=== PATIENT | male | born 1965 | race Caucasian/White ===

== ENCOUNTER 2016-12-12 17:55 | Emergency (ER) | payer OTHER ==
[~2016-12-12] VITALS: Ht 185.4 cm; Wt 83.9 kg
[~2016-12-12 17:55] MED LIST: AMITRIPTYLINE H25 MG PO; AZITHROMYCIN250 MG PO; DOXYCYCLINE HY100 MG PO; FLAGYL500 MG PO; HYDROCODON-ACE1 EA11 PO; HYDROCODON-ACE1 EA14 PO; MORPHINE SULFAT30 M2 PO; NORCO 7.5-3251 EACH PO; OXYCODONE-ACET1 EAC3 PO; PRILOSEC20 MG PO; VALIUM5 MG PO; XARELTO15 MG PO
[2016-12-12] MEDS ORDERED: METHOCARBAMOL750 MG PO (18:13)
== END 2016-12-12 18:30 | disposition home or self-care (01) ==
LOC: ED 17:55
DX: M79.605 Pain in left leg (principal); Z87.891 Personal history of nicotine dependence; Z88.0 Allergy status to penicillin; Z79.899 Other long term (current) drug therapy
CPT/HCPCS: 99282

== ENCOUNTER 2017-01-19 18:52 | Emergency (ER) | payer OTHER ==
[~2017-01-19] VITALS: Ht 185.4 cm; Wt 83.9 kg
[~2017-01-19 18:52] MED LIST changes: +METHOCARBAMOL750 MG PO
[2017-01-19] MEDS ORDERED: OXYCODONE HCL5 MG PO (21:57)
== END 2017-01-19 22:09 | disposition home or self-care (01) ==
LOC: ED 18:52
DX: M54.41 Lumbago with sciatica, right side (principal); Z86.718 Personal history of other venous thrombosis and embolism; Z88.0 Allergy status to penicillin; Z88.8 Allergy status to other drugs, medicaments and biological substances; Z79.899 Other long term (current) drug therapy
CPT/HCPCS: 96372; 99283; J1170; J2550

== ENCOUNTER 2017-07-05 10:19 | Emergency (ER) | payer OTHER ==
[~2017-07-05] VITALS: Ht 185.4 cm; Wt 86.2 kg
[~2017-07-05 10:19] MED LIST changes: +OXYCODONE HCL5 MG PO
[2017-07-05] MEDS ORDERED: XARELTO20 MG PO (10:40)
== END 2017-07-05 12:57 | disposition home or self-care (01) ==
LOC: ED 10:19
DX: D68.9 Coagulation defect, unspecified (principal); Z88.0 Allergy status to penicillin; Z88.8 Allergy status to other drugs, medicaments and biological substances; Z79.899 Other long term (current) drug therapy; Z86.718 Personal history of other venous thrombosis and embolism
CPT/HCPCS: 80053; 85025; 99284

== ENCOUNTER 2017-07-24 10:54 | Emergency (ER) | payer OTHER ==
[~2017-07-24] VITALS: Ht 185.4 cm; Wt 85.7 kg
[~2017-07-24 10:54] MED LIST changes: +XARELTO20 MG PO
[2017-07-24] MEDS ORDERED: MAPAP500 MG PO (11:04)
[2017-07-24] MEDS ORDERED: CYCLOBENZAPRINE10 MG PO (12:46)
== END 2017-07-24 13:08 | disposition home or self-care (01) ==
LOC: ED 10:54
DX: F41.9 Anxiety disorder, unspecified (principal); M54.6 Pain in thoracic spine; M54.5 Low back pain; Z86.718 Personal history of other venous thrombosis and embolism; Z88.0 Allergy status to penicillin; Z88.8 Allergy status to other drugs, medicaments and biological substances; Z79.899 Other long term (current) drug therapy
CPT/HCPCS: 99283

== ENCOUNTER 2019-06-23 12:52 | Emergency (ER) | payer OTHER ==
[~2019-06-23] VITALS: Ht 185.4 cm; Wt 85.7 kg
[~2019-06-23 12:52] MED LIST changes: +CYCLOBENZAPRINE10 MG PO; +MAPAP500 MG PO
--- OUTSIDE RECORDS SUMMARY | 2019-06-23 12:54 | XMS ---
PreManage Notification: LAVONNE BORJAS Security Sprayer Insecticide Events No recent Security Events currently on file CRITERIA MET - [facility] There are no care providers on record at this time. Mikel has no Care Guidelines for this patient. Care History Medical/Surgical 07/25/2017 [facility] Care Recommendation: This patient has had 5 or more Emergency Department visits in the last 12 months. Patient requires education on the scope and purpose of the ED as an acute care provider not a Primary Care Provider and should not be utilized for chronic conditions. If patient returns to ED please contact Community Health WorkerMara at [phone]. These are guidelines and the provider should exercise clinical judgment when providing care. E.D. VISIT COUNT (12 MO.) 1 [facility] TOTAL 1 NOTE: Visits indicate total known visits. ED/UCC VISIT TRACKING (12 MO.) 06/23/2019 12:52 [facility]TY [facility] [place] TYPE: Emergency COMPLAINT: - CHRONIC BACK PAIN INPATIENT VISIT TRACKING (12 MO.) No inpatient visits to display in this time frame [email or web address]
[2019-06-23] MEDS ORDERED: ROBAXIN-750750 MG NG (13:18)
[2019-06-23] MEDS ORDERED: OXYCODONE HCL5 MG PO (13:20)
== END 2019-06-23 14:48 | disposition home or self-care (01) ==
LOC: ED 12:52
DX: M54.5 Low back pain (principal); Z87.891 Personal history of nicotine dependence; Z88.0 Allergy status to penicillin; Z88.8 Allergy status to other drugs, medicaments and biological substances; Z79.899 Other long term (current) drug therapy; Z79.891 Long term (current) use of opiate analgesic
CPT/HCPCS: 72100; 99283-25

== ENCOUNTER 2020-09-02 15:08 | Emergency (ER) | payer OTHER ==
[~2020-09-02] VITALS: Ht 185.4 cm; Wt 88.5 kg
[~2020-09-02 15:08] MED LIST changes: +ROBAXIN-750750 MG NG
--- OUTSIDE RECORDS SUMMARY | 2020-09-02 15:10 | XMS ---
PreManage Notification: LAVONNE BORJAS Security Property Adjuster Events No recent Security Events currently on file CRITERIA MET - [facility] CARE PROVIDERS MILE DIAMOND Physician Cabinet Professional 06/24/2019-Current PHONE: [phone] Mikel has no Care Guidelines for this patient. Care History Medical/Surgical 07/25/2017 [facility] Care Recommendation: This patient has had 5 or more Emergency Department visits in the last 12 months. Patient requires education on the scope and purpose of the ED as an acute care provider not a Primary Care Provider and should not be utilized for chronic conditions. If patient returns to ED please contact Community Health WorkerMara at [phone]. These are guidelines and the provider should exercise clinical judgment when providing care. E.D. VISIT COUNT (12 MO.) [address] [place] [address] TOTAL 1 NOTE: Visits indicate total known visits. ED/UCC VISIT TRACKING (12 MO.) 09/02/2020 15:09 [facility] [place] TYPE: Emergency COMPLAINT: - BACK PROBLEM/ SKIN ISSUE INPATIENT VISIT TRACKING (12 MO.) No inpatient visits to display in this time frame [email or web address]
[2020-09-02] MEDS ORDERED: CLEOCIN HCL300 MG PO (18:46)
== END 2020-09-02 19:01 | disposition home or self-care (01) ==
LOC: ED 15:08
DX: L02.212 Cutaneous abscess of back [any part, except buttock and flank] (principal); D64.9 Anemia, unspecified; Z87.891 Personal history of nicotine dependence; Z88.0 Allergy status to penicillin; Z88.8 Allergy status to other drugs, medicaments and biological substances; Z79.899 Other long term (current) drug therapy
CPT/HCPCS: 74177; 80053; 81001; 85025; 99283-25; J2270; J7030; Q9967

== ENCOUNTER 2020-09-17 14:04 | Emergency (ER) | payer OTHER ==
[~2020-09-17] VITALS: Ht 185.4 cm; Wt 90.7 kg
[~2020-09-17 14:04] MED LIST changes: +CLEOCIN HCL300 MG PO
--- OUTSIDE RECORDS SUMMARY | 2020-09-17 14:08 | XMS ---
PreManage Notification: LAVONNE BORJAS Security Television Equipment Operator Events No recent Security Events currently on file CRITERIA MET - [facility] - 2 Visits in 30 Days CARE PROVIDERS MILE DIAMOND Physician Corporate Account Executive 09/04/2020-Current PHONE: [phone] Mikel has no Care Guidelines for this patient. Care History Medical/Surgical 07/25/2017 [facility] Care Recommendation: This patient has had 5 or more Emergency Department visits in the last 12 months. Patient requires education on the scope and purpose of the ED as an acute care provider not a Primary Care Provider and should not be utilized for chronic conditions. If patient returns to ED please contact Community Health WorkerMara at [phone]. These are guidelines and the provider should exercise clinical judgment when providing care. E.D. VISIT COUNT (12 MO.) 2 [facility] TOTAL 2 NOTE: Visits indicate total known visits. ED/UCC VISIT TRACKING (12 MO.) 09/17/2020 14:05 [facility] [place] TYPE: Emergency COMPLAINT: - POST OP BANDAGE NEEDS REPLACED 09/02/2020 15:09 [facility] [place] TYPE: Emergency COMPLAINT: - BACK PROBLEM/ SKIN ISSUE DIAGNOSES: - Personal history of nicotine dependence - Low back pain - Allergy status to other drugs, medicaments and biological substances - Anemia, unspecified - Cutaneous abscess of back [any part, except buttock] - Allergy status to penicillin - Other long term care social worker (current) drug therapy INPATIENT VISIT TRACKING (12 MO.) 09/08/2020 06:13 [facility] Claudia TAYLOR TYPE: Surgical Services DIAGNOSES: - Arthrodesis status - Cutaneous abscess of back [any part, except buttock] - Infection following a procedure, deep incisional surgical site, initial encounter - Unspecified infectious disease - Opioid dependence, uncomplicated - penitentiary (current) use of anticoagulants - Personal history of other venous thrombosis and embolism - Other specified soft tissue disorders [email or web address]
[2020-09-17] MEDS ORDERED: MORPHINE SULFAT15 M1 PO (14:33)
== END 2020-09-17 14:41 | disposition home or self-care (01) ==
LOC: ED 14:04
DX: Z48.817 Encounter for surgical aftercare following surgery on the skin and subcutaneous tissue (principal); D64.9 Anemia, unspecified; Z87.891 Personal history of nicotine dependence; Z88.0 Allergy status to penicillin; Z88.8 Allergy status to other drugs, medicaments and biological substances; Z88.1 Allergy status to other antibiotic agents; Z79.899 Other long term (current) drug therapy
CPT/HCPCS: 99282

== ENCOUNTER 2020-10-07 17:10 | Emergency (ER) | payer OTHER ==
[~2020-10-07] VITALS: Ht 185.4 cm; Wt 90.7 kg
[~2020-10-07 17:10] MED LIST changes: +MORPHINE SULFAT15 M1 PO
--- OUTSIDE RECORDS SUMMARY | 2020-10-07 17:14 | XMS ---
PreManage Notification: LAVONNE BORJAS Security Antisqueak Chalker Events No recent Security Events currently on file CRITERIA MET - [facility] - 2 Visits in 30 Days CARE PROVIDERS MILE DIAMOND Physician Aerodynamics Teacher 09/04/2020-Current PHONE: [phone] Mikel has no Care Guidelines for this patient. Care History Medical/Surgical 07/25/2017 [facility] Care Recommendation: This patient has had 5 or more Emergency Department visits in the last 12 months. Patient requires education on the scope and purpose of the ED as an acute care provider not a Primary Care Provider and should not be utilized for chronic conditions. If patient returns to ED please contact Community Health WorkerMara at [phone]. These are guidelines and the provider should exercise clinical judgment when providing care. E.D. VISIT COUNT (12 MO.) 3 [facility] TOTAL 3 NOTE: Visits indicate total known visits. ED/UCC VISIT TRACKING (12 MO.) 10/07/2020 17:12 [facility] [place] TYPE: Emergency COMPLAINT: - PREV ABSCESS HAS RETURNED 09/17/2020 14:05 [facility] [place] TYPE: Emergency COMPLAINT: - POST OP BANDAGE NEEDS REPLACED DIAGNOSES: - Allergy status to penicillin - Anemia, unspecified - Allergy status to other drugs, medicaments and biological substances - Encounter for surgical aftercare following surgery on the skin and subcutaneous tissue - Allergy status to other antibiotic agents - Personal history of nicotine dependence - Other terminal makeup operator (current) drug therapy 09/02/2020 15:09 [facility] [place] TYPE: Emergency COMPLAINT: - BACK PROBLEM/ SKIN ISSUE DIAGNOSES: - Personal history of nicotine dependence - Low back pain - Allergy status to other drugs, medicaments and biological substances - Anemia, unspecified - Cutaneous abscess of back [any part, except buttock] - Allergy status to penicillin - Other terminal makeup operator (current) drug therapy INPATIENT VISIT TRACKING (12 MO.) 09/08/2020 06:13 [facility] Alyce TAYLOR TYPE: Surgical Services DIAGNOSES: - Arthrodesis status - Cutaneous abscess of back [any part, except buttock] - Infection following a procedure, deep incisional surgical site, initial encounter - Unspecified infectious disease - Opioid dependence, uncomplicated - prison (current) use of anticoagulants - Personal history of other venous thrombosis and embolism - Other specified soft tissue disorders [email or web address]
[2020-10-07] MEDS ORDERED: VANCO 1.51.5 GM/250 IV (17:44)
== END 2020-10-07 21:04 | disposition home or self-care (01) ==
LOC: ED 17:10
DX: L02.212 Cutaneous abscess of back [any part, except buttock and flank] (principal); D64.9 Anemia, unspecified; Z87.891 Personal history of nicotine dependence; Z88.1 Allergy status to other antibiotic agents; Z88.0 Allergy status to penicillin; Z88.8 Allergy status to other drugs, medicaments and biological substances; Z79.899 Other long term (current) drug therapy; Z79.891 Long term (current) use of opiate analgesic
CPT/HCPCS: 74177; 80053; 85025; 96376; 99283-25; J1170; J7040; Q9967

== ENCOUNTER 2020-10-12 20:41 | Emergency (ER) | payer OTHER ==
[~2020-10-12] VITALS: Ht 185.4 cm; Wt 90.7 kg
[~2020-10-12 20:41] MED LIST changes: +VANCO 1.51.5 GM/250 IV
--- OUTSIDE RECORDS SUMMARY | 2020-10-12 20:44 | XMS ---
PreManage Notification: LAVONNE BORJAS Security Medical Language Specialist Events No recent Security Events currently on file CRITERIA MET - [facility] - [facility] - 2 Visits in 30 Days CARE PROVIDERS MILE DIAMOND Physician Entry Level Assistant Manager 09/04/2020-Current PHONE: [phone] Mikel has no Care Guidelines for this patient. Care History Medical/Surgical 10/09/2020 [facility] - PATIENT CURRENTLY ON A PAIN CONTRACT WITH RADHA NELSON PA-C. 07/25/2017 [facility] Care Recommendation: This patient has had 5 or more Emergency Department visits in the last 12 months. Patient requires education on the scope and purpose of the ED as an acute care provider not a Primary Care Provider and should not be utilized for chronic conditions. If patient returns to ED please contact Community Health WorkerMara at [phone]. These are guidelines and the provider should exercise clinical judgment when providing care. E.D. VISIT COUNT (12 MO.) 4 [facility]. TOTAL 4 NOTE: Visits indicate total known visits. ED/UCC VISIT TRACKING (12 MO.) 10/12/2020 20:42 [facility] [place] TYPE: Emergency COMPLAINT: - POST OP PROBLEM 10/07/2020 17:12 [facility] [place] TYPE: Emergency COMPLAINT: - PREV ABSCESS HAS RETURNED DIAGNOSES: - Other usp (current) drug therapy - Allergy status to penicillin - Allergy status to other drugs, medicaments and biological substances - Allergy status to other antibiotic agents - Anemia, unspecified - penitentiary (current) use of opiate analgesic - Personal history of nicotine dependence - Cutaneous abscess of back [any part, except buttock] 09/17/2020 14:05 [facility] [place] TYPE: Emergency COMPLAINT: - POST OP BANDAGE NEEDS REPLACED DIAGNOSES: - Allergy status to penicillin - Anemia, unspecified - Allergy status to other drugs, medicaments and biological substances - Encounter for surgical aftercare following surgery on the skin and subcutaneous tissue - Allergy status to other antibiotic agents - Personal history of nicotine dependence - Other salvage determiner (current) drug therapy 09/02/2020 15:09 [facility] [place] TYPE: Emergency COMPLAINT: - BACK PROBLEM/ SKIN ISSUE DIAGNOSES: - Personal history of nicotine dependence - Low back pain - Allergy status to other drugs, medicaments and biological substances - Anemia, unspecified - Cutaneous abscess of back [any part, except buttock] - Allergy status to penicillin - Other salvage determiner (current) drug therapy INPATIENT VISIT TRACKING (12 MO.) 09[facility]/2020 [facility] DIAGNOSES: - Arthrodesis status - Cutaneous abscess of back [any part, except buttock] - Infection following a procedure, deep incisional surgical site, initial encounter - Unspecified infectious disease - Opioid dependence, uncomplicated - terminal makeup operator (current) use of anticoagulants - Personal history of other venous thrombosis and embolism - Other specified soft tissue disorders [id number]
== END 2020-10-12 21:48 | disposition home or self-care (01) ==
LOC: ED 20:41
DX: L76.82 Other postprocedural complications of skin and subcutaneous tissue (principal); D64.9 Anemia, unspecified; Z87.891 Personal history of nicotine dependence; Z88.1 Allergy status to other antibiotic agents; Z88.0 Allergy status to penicillin; Z88.8 Allergy status to other drugs, medicaments and biological substances; Z79.899 Other long term (current) drug therapy; Z79.891 Long term (current) use of opiate analgesic
CPT/HCPCS: 87070; 87205; 99283

== ENCOUNTER 2020-12-12 18:07 | Emergency (ER) | payer OTHER ==
[~2020-12-12] VITALS: Ht 185.4 cm; Wt 86.2 kg
--- OUTSIDE RECORDS SUMMARY | 2020-12-12 18:10 | XMS ---
PreManage Notification: LAVONNE BORJAS Security Awning Hanger Events No recent Security Events currently on file CRITERIA MET - [facility] - 6 ED Visits in 6 Months CARE PROVIDERS MILE DIAMOND Physician Store Coordinator 09/04/2020-Current PHONE: [phone] Mikel has no Care Guidelines for this patient. Care History Medical/Surgical 10/09/2020 [facility] - PATIENT CURRENTLY ON A PAIN CONTRACT WITH RADHA NELSON PA-C. 07/25/2017 [facility] Care Recommendation: This patient has had 5 or more Emergency Department visits in the last 12 months. Patient requires education on the scope and purpose of the ED as an acute care provider not a Primary Care Provider and should not be utilized for chronic conditions. If patient returns to ED please contact Community Health WorkerMara at [phone]. These are guidelines and the provider should exercise clinical judgment when providing care. E.D. VISIT COUNT ([address] 6 [facility] TOTAL 6 NOTE: Visits indicate total known visits. ED/UCC VISIT TRACKING (12 MO.) 12/12/2020 18:08 [facility] [place] TYPE: Emergency COMPLAINT: - LOWER RT SKIN PROBLEM 10/26/2020 21:43 [facility] [place] TYPE: Emergency COMPLAINT: - POST OP PROBLEM 10/12/2020 20:42 [facility] [place] TYPE: Emergency COMPLAINT: - POST OP PROBLEM DIAGNOSES: - Personal history of nicotine dependence - Allergy status to penicillin - Other postprocedural complications of skin and subcutaneous tissue - submersible pilot (current) use of opiate analgesic - Allergy status to other drugs, medicaments and biological substances - Allergy status to other antibiotic agents - Anemia, unspecified - Other longwall headgate operator (current) drug therapy 10/07/2020 17:12 [facility] [place] TYPE: Emergency COMPLAINT: - PREV ABSCESS HAS RETURNED DIAGNOSES: - Other senior living (current) drug therapy - Allergy status to penicillin - Allergy status to other drugs, medicaments and biological substances - Allergy status to other antibiotic agents - Anemia, unspecified - nursing home (current) use of opiate analgesic - Personal history of nicotine dependence - Cutaneous abscess of back [any part, except buttock] 09/17/2020 14:05 [facility] [place] TYPE: Emergency COMPLAINT: - POST OP BANDAGE NEEDS REPLACED DIAGNOSES: - Allergy status to penicillin - Anemia, unspecified - Allergy status to other drugs, medicaments and biological substances - Encounter for change or removal of surgical wound dressing - Encounter for surgical aftercare following surgery on the skin and subcutaneous tissue - Allergy status to other antibiotic agents - Personal history of nicotine dependence - Other senior living (current) drug therapy 09/02/2020 15:09 [facility] [place] TYPE: Emergency COMPLAINT: - BACK PROBLEM/ SKIN ISSUE DIAGNOSES: - Personal history of nicotine dependence - Low back pain - Allergy status to other drugs, medicaments and biological substances - Anemia, unspecified - Cutaneous abscess of back [any part, except buttock] - Allergy status to penicillin - Other longwall headgate operator (current) drug therapy INPATIENT VISIT TRACKING (12 MO.) [facility] DIAGNOSES: - Unspecified infectious disease - Postlaminectomy syndrome, not elsewhere classified - Other specified postprocedural states - Infection following a procedure, deep incisional surgical site, initial encounter 09/08/2020 06:13 [facility] DIAGNOSES: - Arthrodesis status - Cutaneous abscess of back [any part, except buttock] - Infection following a procedure, deep incisional surgical site, initial encounter - Unspecified infectious disease - Opioid dependence, uncomplicated - nursing home (current) use of anticoagulants - Personal history of other venous thrombosis and embolism - Other specified soft tissue disorders [email or web address]
[2020-12-12] MEDS ORDERED: CEFAZOLIN2 GM/20 M1 IV (18:35)
== END 2020-12-12 19:39 | disposition home or self-care (01) ==
LOC: ED 18:07
DX: T81.41XA Infection following a procedure, superficial incisional surgical site, initial encounter (principal); L02.212 Cutaneous abscess of back [any part, except buttock and flank]; D64.9 Anemia, unspecified; Z87.891 Personal history of nicotine dependence; Z88.0 Allergy status to penicillin; Z88.8 Allergy status to other drugs, medicaments and biological substances; Z88.1 Allergy status to other antibiotic agents; Z79.899 Other long term (current) drug therapy; Z79.891 Long term (current) use of opiate analgesic
CPT/HCPCS: 99283

== ENCOUNTER 2021-08-08 12:05 | Emergency (ER) | payer OTHER ==
[~2021-08-08] VITALS: Ht 185.4 cm; Wt 86.6 kg
[~2021-08-08 12:05] MED LIST changes: +CEFAZOLIN2 GM/20 M1 IV
--- OUTSIDE RECORDS SUMMARY | 2021-08-08 12:08 | XMS ---
PreManage Notification: LAVONNE BORJAS Security Contact Lens Polisher Events No recent Security Events currently on file CRITERIA MET - [facility] CARE PROVIDERS MILE DIAMOND Physician Jailer/Training Officer 09/04/2020-Current PHONE: [phone] Mikel has no Care Guidelines for this patient. Care History Medical/Surgical 10/09/2020 [facility] - PATIENT CURRENTLY ON A PAIN CONTRACT WITH RADHA NELSON PA-C. 07/25/2017 [facility] Care Recommendation: This patient has had 5 or more Emergency Department visits in the last 12 months. Patient requires education on the scope and purpose of the ED as an acute care provider not a Primary Care Provider and should not be utilized for chronic conditions. If patient returns to ED please contact Community Health WorkerMara at [phone]. These are guidelines and the provider should exercise clinical judgment when providing care. E.D. VISIT COUNT (12 MO.) 1 [facility] 7 [facility]. TOTAL 8 NOTE: Visits indicate total known visits. ED/UCC VISIT TRACKING (12 MO.) 08/08/2021 12:06 LETTY Carey TYPE: Emergency COMPLAINT: - WOUND ON LOWER BACK 12/18/2020 12:00 [facility] TYPE: Emergency DIAGNOSES: 39616. spine cage issues and infection 46294. Osteomyelitis of vertebra, lumbar region 86602. Unspecified infectious disease 12/12/2020 18:08 [facility] [place] TYPE: Emergency COMPLAINT: - LOWER RT SKIN PROBLEM DIAGNOSES: - Infection following a procedure, superficial incisional surgical site, initial encounter - leadership program intern (current) use of opiate analgesic - Other geoint analyst (current) drug therapy - Allergy status to other drugs, medicaments and biological substances - Allergy status to other antibiotic agents - Anemia, unspecified - Cutaneous abscess of back [any part, except buttock] - Personal history of nicotine dependence - Allergy status to penicillin 10/26/2020 21:43 [facility] [place] TYPE: Emergency COMPLAINT: - POST OP PROBLEM 10/12/2020 20:42 [facility] [place] TYPE: Emergency COMPLAINT: - POST OP PROBLEM DIAGNOSES: - Personal history of nicotine dependence - Allergy status to penicillin - Other postprocedural complications of skin and subcutaneous tissue - snf (current) use of opiate analgesic - Allergy status to other drugs, medicaments and biological substances - Allergy status to other antibiotic agents - Anemia, unspecified - Other geoint analyst (current) drug therapy 10/07/2020 17:12 [facility] [place] TYPE: Emergency COMPLAINT: - PREV ABSCESS HAS RETURNED DIAGNOSES: - Other fpc (current) drug therapy - Allergy status to penicillin - Allergy status to other drugs, medicaments and biological substances - Allergy status to other antibiotic agents - Anemia, unspecified - snf (current) use of opiate analgesic - Personal [...] Personal history of nicotine dependence - Other fpc (current) drug therapy 09/02/2020 15:09 [facility] [place] TYPE: Emergency COMPLAINT: - BACK PROBLEM/ SKIN ISSUE DIAGNOSES: - Personal history of nicotine dependence - Low back pain - Allergy status to other drugs, medicaments and biological substances - Anemia, unspecified - Cutaneous abscess of back [any part, except buttock] - Allergy status to penicillin - Other fpc (current) drug therapy INPATIENT VISIT TRACKING (12 MO.) 10/18/2020 08:39 [facility] [place] TYPE: Surgical Services DIAGNOSES: - Unspecified infectious disease - Postlaminectomy syndrome, not elsewhere classified - Other specified postprocedural states - Infection following a procedure, deep incisional surgical site, initial encounter 09/08/2020 06[facility] DIAGNOSES: - Arthrodesis status - Cutaneous abscess of back [any part, except buttock] - Infection following a procedure, deep incisional surgical site, initial encounter - Unspecified infectious disease - Opioid dependence, uncomplicated - snf (current) use of anticoagulants - Personal history of other venous thrombosis and embolism - Other specified soft tissue disorders [email or web address]
[2021-08-08] MEDS ORDERED: CEPHALEXIN500 M1 PO (19:20)
== END 2021-08-08 19:50 | disposition home or self-care (01) ==
LOC: ED 12:05
DX: L02.212 Cutaneous abscess of back [any part, except buttock and flank] (principal); L08.9 Local infection of the skin and subcutaneous tissue, unspecified; Z86.718 Personal history of other venous thrombosis and embolism; D64.9 Anemia, unspecified; Z87.891 Personal history of nicotine dependence; Z88.0 Allergy status to penicillin; Z88.1 Allergy status to other antibiotic agents; Z88.8 Allergy status to other drugs, medicaments and biological substances; Z79.01 Long term (current) use of anticoagulants; Z79.899 Other long term (current) drug therapy; Z20.822 Contact with and (suspected) exposure to COVID-19
CPT/HCPCS: 10060; 36415; 74177; 80048; 83605; 85025; 86140; 87070; 99283-25; C9803; J1170; Q9967; U0003

== ENCOUNTER 2021-09-05 19:03 | Inpatient (IN) | payer MEDICARE, OTHER ==
[~2021-09-05] VITALS: Ht 185.4 cm; Wt 90.6 kg
[~2021-09-05 19:03] MED LIST changes: +CEPHALEXIN500 M1 PO; -ROBAXIN-750750 MG NG
--- OUTSIDE RECORDS SUMMARY | 2021-09-05 19:10 | XMS ---
PreManage Notification: LAVONNE BORJAS Security Water Manager Events No recent Security Events currently on file CRITERIA MET - [facility] - 2 Visits in 30 Days CARE PROVIDERS MILE DIAMOND Physician Punch Press Feeder 09/04/2020-Current PHONE: [phone] Mikel has no Care Guidelines for this patient. Care History Medical/Surgical 10/09/2020 [facility] - PATIENT CURRENTLY ON A PAIN CONTRACT WITH RADHA NELSON PA-C. 07/25/2017 [facility] Care Recommendation: This patient has had 5 or more Emergency Department visits in the last 12 months. Patient requires education on the scope and purpose of the ED as an acute care provider not a Primary Care Provider and should not be utilized for chronic conditions. If patient returns to ED please contact Community Health WorkerMara at [phone]. These are guidelines and the provider should exercise clinical judgment when providing care. E.D. VISIT COUNT (12 MO.) 1 [facility] 7 [facility] TOTAL 8 NOTE: Visits indicate total known visits. ED/UCC VISIT TRACKING (12 MO.) 09/05/2021 19:04 [facility] [place] TYPE: Emergency COMPLAINT: - ABDOMINAL PAIN 08/08/2021 12:06 [facility] [place] TYPE: Emergency COMPLAINT: - WOUND ON LOWER BACK DIAGNOSES: - Personal history of other venous thrombosis and embolism - Cutaneous abscess of back [any part, except buttock] - Personal history of nicotine dependence - Allergy status to penicillin - Allergy status to other antibiotic agents - Local infection of the skin and subcutaneous tissue, unspecified - Other specified disorders of the skin and subcutaneous tissue - Allergy status to other drugs, medicaments and biological substances - Anemia, unspecified - Other petroleum terminal plant operator (current) drug therapy - watermelon inspector (current) use of anticoagulants 12/18/2020 12:00 [facility] TYPE: Emergency DIAGNOSES: 13926. spine cage issues and infection . Osteomyelitis of vertebra, lumbar region . Unspecified infectious disease 12/12/2020 18:08 [facility] [place] TYPE: Emergency COMPLAINT: - LOWER RT SKIN PROBLEM DIAGNOSES: - Infection following a procedure, superficial incisional surgical site, initial encounter - alf (current) use of opiate analgesic - Other detention (current) drug therapy - Allergy status to [...] complications of skin and subcutaneous tissue - alf (current) use of opiate analgesic - Allergy status to other drugs, medicaments and biological substances - Allergy status to other antibiotic agents - Anemia, unspecified - Other detention (current) drug therapy 10/07/2020 17:12 [facility] [place] TYPE: Emergency COMPLAINT: - PREV ABSCESS HAS RETURNED DIAGNOSES: - Other detention (current) drug therapy - Allergy status to penicillin - Allergy status to other drugs, medicaments and biological substances - Allergy status to other antibiotic agents - Anemia, unspecified - watermelon inspector (current) use of opiate analgesic - Personal [...] Personal history of nicotine dependence - Other petroleum terminal plant operator (current) drug therapy INPATIENT VISIT TRACKING (12 MO.) 10/18/2020 08:[address] [facility] Claudia TAYLOR TYPE: Surgical Services DIAGNOSES: - Unspecified infectious disease - Postlaminectomy syndrome, not elsewhere classified - Other specified postprocedural states - Infection following a procedure, deep incisional surgical site, initial encounter 09/08/2020 06:[address] [facility] Claudia TAYLOR TYPE: Surgical Services DIAGNOSES: - Arthrodesis status - Cutaneous abscess of back [any part, except buttock] - Infection following a procedure, deep incisional surgical site, initial encounter - Unspecified infectious disease - Opioid dependence, uncomplicated - watermelon inspector (current) use of anticoagulants - Personal history of other venous thrombosis and embolism - Other specified soft tissue disorders [email or web address]
[2021-09-17] MEDS ORDERED: CEFTRIAXONE2 G1 IV (13:54)
== END 2021-09-17 15:00 | DRG 560 ==
LOC: ED 19:03 → MS 19:05
PROVIDERS: ADMIT Internal Medicine; ATTEND Internal Medicine
DX: T84.7XXA Infection and inflammatory reaction due to other internal orthopedic prosthetic devices, implants and grafts, initial encounter (principal); M60.08 Infective myositis, other site; M46.36 Infection of intervertebral disc (pyogenic), lumbar region; Z20.822 Contact with and (suspected) exposure to COVID-19; Z86.718 Personal history of other venous thrombosis and embolism; Z98.890 Other specified postprocedural states; Z87.891 Personal history of nicotine dependence; Z88.1 Allergy status to other antibiotic agents; Z88.8 Allergy status to other drugs, medicaments and biological substances; Z79.01 Long term (current) use of anticoagulants; Z79.899 Other long term (current) drug therapy; Y79.3 Surgical instruments, materials and orthopedic devices (including sutures) associated with adverse incidents
CPT/HCPCS: 36415; 72131; 74177; 80048; 80053; 80202; 81001; 82565; 83605; 84520; 85025; 85651; 86140; 87040; 87070; 87075; 87205; 96374; 96375; 96376; 99284-25; A9270; C9803; G0378; J0696; J1170; J1335; J1650; J1885; J2270; J2405; J3370; J7030; J7060; Q9967; U0003